=== PATIENT | male | born 1995 ===

== ENCOUNTER → 2025-02-01 | Outpatient (CLI) | payer BC, SELFPAY ==
[2025-02-01 17:38] LABS: % Variance Motility 0 %; Motl CLS 1 60; Motl CLS 2 60; Room Temperature 24 (20-27C (Area)); Sperm Motility 60 % (>=50)
[2025-02-01 18:01] LABS: % Variance 6 %; Count Side 1 49; Count Side 2 46; Sperm Count 47 Million (20-50)
== END | disposition home or self-care (01) ==
LOC: SLDO 16:53
PROVIDERS: Referring Provider Specialist; Visit Provider Specialist
DX: N46.9 Male infertility, unspecified (principal)
CPT/HCPCS: 89310